=== PATIENT | female | born 1950 | race Caucasian/White ===

== ENCOUNTER 2025-07-04 14:20 | Inpatient (IN) | payer OTHER ==
[~2025-07-04] VITALS: Ht 167.6 cm; Wt 111.0 kg
[2025-07-04 15:15] LABS: PLATELET COUNT (AUTO) 305 K/uL (150-450); RED BLOOD CELL COUNT(AUTO) 4.65 MIL/uL (4.00-5.20); RED CELL DISTRIBUTION WIDTH 16.6 % (11.5-14.5); WHITE BLOOD COUNT (AUTO) 5.5 K/uL (4.5-11.0)
[2025-07-04 15:22] LABS: CALCIUM, TOTAL 8.5 mg/dL (8.8-10.5); CREATININE 0.74 mg/dL (0.60-1.30); GLOMERULAR FILTR. RATE CALC > 60 mL/min (>60); GLUCOSE,RANDOM 88 mg/dL (70-110); SODIUM SERUM 134 mmol/L (136-145); UREA NITROGEN, BLOOD 7 mg/dL (7-18)
[2025-07-04 15:25] LABS: COVID AG,FIA SOURCE NASAL SWAB
[2025-07-04] MEDS ORDERED: CARB1TAB35 PO (15:30)
[2025-07-04] MEDS ORDERED: ENTA200T18 PO (15:30)
[2025-07-04] MEDS ORDERED: LURA60TA PO (15:30)
[2025-07-04] MEDS ORDERED: ARIP30TA PO (15:30)
[2025-07-04] MEDS ORDERED: FURO40TA6 PO (15:30)
[2025-07-04] MEDS ORDERED: ATOR20TA65 PO (15:30)
[2025-07-04] MEDS ORDERED: APIX2.5T PO (15:30)
[2025-07-04] MEDS ORDERED: BUPR-112 PO (15:30)
[2025-07-04 15:45] LABS: SARS-COV2 (COVID) ANTIGEN,FIA Negative (Negative)
[2025-07-04] MEDS: POTASSIUM CHLORIDE 20 MEQ ER TABLET PO ONE (17:30)
[2025-07-04] MEDS: MAGNESIUM OXIDE 400 MG TABLET PO ONE (17:30)
[2025-07-04 17:38] LABS: APPEARANCE,URINE TURBID (CLEAR); GLUCOSE, URINE (UA) NEGATIVE (NEGATIVE); LEUKOCYTE ESTERASE ,URINE LARGE (NEGATIVE); NITRATE,URINE POSITIVE (NEGATIVE); OCCULT BLOOD,URINE MODERATE (NEGATIVE); SPECIFIC GRAVITIY, URINE 1.013 (1.003-1.030)
[2025-07-04 17:39] LABS: PH,URINE DRUG SCREEN 6.0 (5.0-8.0)
[2025-07-04 17:45] LABS: ALCOHOL, URINE DRUG SCREEN NEGATIVE (NEGATIVE); AMPHET/METH SCREEN,URINE NEGATIVE (NEGATIVE); BARBITURATE SCREEN, URINE NEGATIVE (NEGATIVE); CANNABINOID SCREEN,URINE NEGATIVE (NEGATIVE); COCAINE SCREEN,URINE NEGATIVE (NEGATIVE); METHADONE SCREEN, URINE NEGATIVE (NEGATIVE)
[2025-07-04 17:56] LABS: SQUAMOUS EPITHELIAL CELL,UR Few /LPF (None Seen)
[2025-07-04 21:59] VITALS: BP 117/74; PULSE 85; RESP 20; TEMP 98.2; O2SAT 96
[2025-07-05 04:30] VITALS: BP 119/67; PULSE 82; RESP 20; TEMP 97.9; O2SAT 96
[2025-07-05 07:49] VITALS: BP 118/71; PULSE 83; RESP 18; TEMP 97.5; O2SAT 99
[2025-07-05] MEDS: ATORVASTATIN CALCIUM 20 MG TABLET PO SCH (10:54)
[2025-07-05] MEDS: CARBIDOPA/LEVODOPA 25-100 MG TABLET PO SCH (10:54)
[2025-07-05] MEDS: BuPROPion HCL 100 MG SR TABLET PO SCH (10:54)
[2025-07-05] MEDS: APIXABAN 2.5 MG TABLET PO SCH (10:54)
[2025-07-05] MEDS: FUROSEMIDE 40 MG TABLET PO SCH (10:54)
[2025-07-05] MEDS ORDERED: SODIUM CHLORIDE 0.9% 500 ML IV ONE (13:26)
[2025-07-05] MEDS: CefTRIAXone 1 GM/DEXTROSE 50 ML IV SCH (13:33)
[2025-07-05 13:53] LABS: ASPARTATE AMINOTRANSFERASE 15 U/L (15-37); CALCIUM, TOTAL 8.4 mg/dL (8.8-10.5); CREATININE 0.70 mg/dL (0.60-1.30); GLOMERULAR FILTR. RATE CALC > 60 mL/min (>60); GLUCOSE,RANDOM 89 mg/dL (70-110); SODIUM SERUM 137 mmol/L (136-145); TOTAL PROTEIN, SERUM 6.9 g/dL (6.4-8.2); UREA NITROGEN, BLOOD 11 mg/dL (7-18)
[2025-07-05 16:03] VITALS: BP 131/71; PULSE 106; RESP 18; TEMP 97.6; O2SAT 96
[2025-07-05] MEDS: ENTACAPONE 200 MG TABLET PO SCH (17:20)
[2025-07-05 20:00] VITALS: BP 111/68; PULSE 89; RESP 18; TEMP 98.2; O2SAT 97
[2025-07-05] MEDS: LURASIDONE HCL 60 MG TABLET PO SCH (20:12)
[2025-07-05] MEDS: POTASSIUM CHLORIDE 20 MEQ ER TABLET PO PRN (22:25)
[2025-07-06 04:00] VITALS: BP 102/65; PULSE 82; RESP 18; TEMP 98.2; O2SAT 95
[2025-07-06] MEDS: POTASSIUM CHL 10 MEQ/WATER 50 ML IV SCH (10:30)
[2025-07-06 16:00] VITALS: BP 112/87; PULSE 90; RESP 20; TEMP 97.9; O2SAT 98
[2025-07-06 19:46] VITALS: BP 118/79; PULSE 87; RESP 18; TEMP 98.2; O2SAT 100
[2025-07-07 04:46] VITALS: BP 114/76; PULSE 87; RESP 18; TEMP 97.9; O2SAT 96
[2025-07-07 08:08] VITALS: BP 109/63; PULSE 89; RESP 18; TEMP 98; O2SAT 100
[2025-07-07] MEDS: MEROPENEM 1 GM in SODIUM CHLORIDE 0.9% 50 ML IV SCH (10:42)
[2025-07-07 15:00] VITALS: BP 110/7; PULSE 97; RESP 19; TEMP 98; O2SAT 97
[2025-07-07 19:42] VITALS: BP 107/74; PULSE 88; RESP 18; TEMP 97.9; O2SAT 97
[2025-07-08 04:38] VITALS: BP 107/68; PULSE 80; RESP 18; TEMP 97.7; O2SAT 96
[2025-07-08 07:41] VITALS: BP 100/63; PULSE 75; RESP 20; TEMP 97.5; O2SAT 99
[2025-07-08 13:38] VITALS: BP 98/60; PULSE 99
[2025-07-08 13:44] VITALS: BP 92/57; PULSE 97
[2025-07-08 16:59] VITALS: BP 99/69; PULSE 93; RESP 20; TEMP 97.9; O2SAT 100
[2025-07-08 19:45] VITALS: BP 105/65; PULSE 93; RESP 18; TEMP 97.9; O2SAT 95
[2025-07-08] MEDS: FUROSEMIDE 20 MG TABLET PO SCH (21:00)
[2025-07-09 04:38] VITALS: BP 108/83; PULSE 77; RESP 18; TEMP 97.3; O2SAT 95
[2025-07-09 07:33] VITALS: BP 99/72; PULSE 104; RESP 20; TEMP 97.7; O2SAT 99
[2025-07-09] MEDS ORDERED: SODIUM CHLORIDE 0.9% 500 ML IV ONE (11:40)
[2025-07-09 15:05] VITALS: BP 100/75; PULSE 108; RESP 20; TEMP 97.3; O2SAT 96
[2025-07-09 19:42] VITALS: BP 98/63; PULSE 130; RESP 20; TEMP 97.7; O2SAT 95
[2025-07-10 03:59] VITALS: BP 108/66; PULSE 120; RESP 20; TEMP 97.7; O2SAT 97
[2025-07-10 08:00] VITALS: BP 107/89; PULSE 116; RESP 19; TEMP 97.5; O2SAT 96
[2025-07-10 10:05] LABS: PLATELET COUNT (AUTO) 256 K/uL (150-450); RED BLOOD CELL COUNT(AUTO) 4.64 MIL/uL (4.00-5.20); RED CELL DISTRIBUTION WIDTH 16.7 % (11.5-14.5); WHITE BLOOD COUNT (AUTO) 6.4 K/uL (4.5-11.0)
[2025-07-10 10:08] LABS: CALCIUM, TOTAL 8.4 mg/dL (8.8-10.5); CREATININE 0.93 mg/dL (0.60-1.30); GLOMERULAR FILTR. RATE CALC 59.0 mL/min (>60); GLUCOSE,RANDOM 143.0 mg/dL (70-110); SODIUM SERUM 138.0 mmol/L (136-145); UREA NITROGEN, BLOOD 15.0 mg/dL (7-18)
[2025-07-10 10:15] LABS: TROPONIN I-HIGH SENSITIVITY 14 ng/L (<51)
[2025-07-10] MEDS: HYDROCODONE/ACETAMINOPHEN 5-325 MG TABLET PO PRN (10:23)
[2025-07-10] MEDS: POTASSIUM CHL 10 MEQ/WATER 50 ML IV PRN (10:40)
[2025-07-10] MEDS ORDERED: MAGNESIUM SULFATE 2 GM/WATER 50 ML IV PRN (10:45)
[2025-07-10] MEDS ORDERED: MAGNESIUM SULFATE 4 GM/WATER 100 ML IV PRN (10:45)
[2025-07-10] MEDS: MAGNESIUM OXIDE 400 MG TABLET PO PRN (11:10)
[2025-07-10] MEDS: AMIODARONE HCL 360 MG in DEXTROSE 5%-WATER 242.8 ML IV ONE (14:53)
[2025-07-10] MEDS: AMIODARONE HCL 150 MG in DEXTROSE 5%-WATER 97 ML IV ONE (14:54)
[2025-07-10 15:52] LABS: TROPONIN I-HIGH SENSITIVITY 13 ng/L (<51)
[2025-07-10 20:29] VITALS: BP 106/78; PULSE 112; RESP 19; TEMP 97.5; O2SAT 98
[2025-07-10] MEDS: AMIODARONE HCL 540 MG in DEXTROSE 5%-WATER 250 ML IV ONE (22:13)
[2025-07-11] VITALS (7 sets, daily range): BP systolic 97–125; BP diastolic 66–84; PULSE 72–108; RESP 18–20; TEMP 97.2–98.5; O2SAT 96–98
[2025-07-11 06:17] LABS: CALCIUM, TOTAL 8.4 mg/dL (8.8-10.5); CREATININE 0.77 mg/dL (0.60-1.30); GLOMERULAR FILTR. RATE CALC > 60 mL/min (>60); GLUCOSE,RANDOM 100 mg/dL (70-110); SODIUM SERUM 138 mmol/L (136-145); UREA NITROGEN, BLOOD 12 mg/dL (7-18)
[2025-07-11] MEDS: METOPROLOL TARTRATE 25 MG TABLET PO SCH (09:31)
[2025-07-11] MEDS: AMIODARONE HCL 750 MG in DEXTROSE 5%-WATER 485 ML IV SCH (17:18)
[2025-07-12 04:13] VITALS: BP 105/78; PULSE 94; RESP 18; TEMP 97.9; O2SAT 98
[2025-07-12 06:30] LABS: PLATELET COUNT (AUTO) 250 K/uL (150-450); RED BLOOD CELL COUNT(AUTO) 4.47 MIL/uL (4.00-5.20); RED CELL DISTRIBUTION WIDTH 16.3 % (11.5-14.5); WHITE BLOOD COUNT (AUTO) 9.5 K/uL (4.5-11.0)
[2025-07-12 07:04] LABS: CALCIUM, TOTAL 8.4 mg/dL (8.8-10.5); CREATININE 0.83 mg/dL (0.60-1.30); GLOMERULAR FILTR. RATE CALC > 60 mL/min (>60); GLUCOSE,RANDOM 108 mg/dL (70-110); SODIUM SERUM 137 mmol/L (136-145); UREA NITROGEN, BLOOD 12 mg/dL (7-18)
[2025-07-12 08:33] VITALS: BP 100/69; PULSE 113; RESP 19; TEMP 97.9; O2SAT 98
[2025-07-12 11:38] VITALS: BP 110/72; PULSE 100; RESP 18; TEMP 98.8; O2SAT 98
[2025-07-12] MEDS: AMIODARONE HCL 200 MG TABLET PO SCH (15:06)
[2025-07-12 15:53] VITALS: BP 112/69; PULSE 102; RESP 17; TEMP 98.1; O2SAT 99
[2025-07-12 19:56] VITALS: BP 119/78; PULSE 107; RESP 17; TEMP 97.7; O2SAT 99
[2025-07-12] MEDS: MIDODRINE HCL 5 MG TABLET PO SCH (21:16)
[2025-07-12 23:21] VITALS: BP 109/98; PULSE 90; RESP 15; TEMP 98.1; O2SAT 97
[2025-07-13 03:24] VITALS: BP 113/68; PULSE 88; RESP 17; TEMP 98.1; O2SAT 97
[2025-07-13 07:48] VITALS: BP 101/60; PULSE 92; RESP 18; TEMP 97.6; O2SAT 98
[2025-07-13 11:51] VITALS: BP 98/62; PULSE 90; RESP 19; TEMP 97; O2SAT 94
[2025-07-13 16:21] VITALS: BP 98/62; PULSE 85; RESP 18; TEMP 97.4; O2SAT 98
[2025-07-13 20:15] VITALS: BP 105/62; PULSE 104; RESP 18; TEMP 98.1; O2SAT 97
[2025-07-14] VITALS (7 sets, daily range): BP systolic 90–111; BP diastolic 55–76; PULSE 73–100; RESP 17–18; TEMP 97.3–98.1; O2SAT 94–98
[2025-07-14 05:57] LABS: PLATELET COUNT (AUTO) 249 K/uL (150-450); RED BLOOD CELL COUNT(AUTO) 4.36 MIL/uL (4.00-5.20); RED CELL DISTRIBUTION WIDTH 16.3 % (11.5-14.5); WHITE BLOOD COUNT (AUTO) 7.9 K/uL (4.5-11.0)
[2025-07-14 06:49] LABS: CALCIUM, TOTAL 8.7 mg/dL (8.8-10.5); CREATININE 0.86 mg/dL (0.60-1.30); GLOMERULAR FILTR. RATE CALC > 60 mL/min (>60); GLUCOSE,RANDOM 99 mg/dL (70-110); SODIUM SERUM 138 mmol/L (136-145); UREA NITROGEN, BLOOD 18 mg/dL (7-18)
[2025-07-14] MEDS: MEROPENEM 1 GM in SODIUM CHLORIDE 0.9% 50 ML IV SCH (11:54)
[2025-07-15 03:39] VITALS: BP 95/65; PULSE 80; RESP 19; TEMP 98.1; O2SAT 98
[2025-07-15 08:00] VITALS: BP 89/62; PULSE 70; RESP 18; TEMP 97.3; O2SAT 97
[2025-07-15] MEDS: MIDODRINE HCL 5 MG TABLET PO SCH (09:27)
[2025-07-15 12:00] VITALS: BP 91/44; PULSE 88; RESP 18; TEMP 97.7; O2SAT 97
[2025-07-15 16:00] VITALS: BP 88/50; PULSE 57; RESP 14; TEMP 98; O2SAT 100
[2025-07-15 20:19] VITALS: BP 120/77; PULSE 105; RESP 16; TEMP 98.1; O2SAT 97
[2025-07-15 20:30] VITALS: PULSE 82
[2025-07-16 00:13] VITALS: BP 107/78; PULSE 104; RESP 18; TEMP 98.1; O2SAT 96
[2025-07-16 03:57] VITALS: BP 106/69; PULSE 78; RESP 17; TEMP 98.1; O2SAT 95
[2025-07-16 08:48] VITALS: BP 104/71; PULSE 86; RESP 18; TEMP 98.4; O2SAT 94
[2025-07-16 10:16] LABS: PLATELET COUNT (AUTO) 244 K/uL (150-450); RED BLOOD CELL COUNT(AUTO) 4.08 MIL/uL (4.00-5.20); RED CELL DISTRIBUTION WIDTH 16.6 % (11.5-14.5); WHITE BLOOD COUNT (AUTO) 7.6 K/uL (4.5-11.0)
[2025-07-16 10:25] LABS: CALCIUM, TOTAL 8.5 mg/dL (8.8-10.5); CREATININE 0.84 mg/dL (0.60-1.30); GLOMERULAR FILTR. RATE CALC > 60 mL/min (>60); GLUCOSE,RANDOM 87 mg/dL (70-110); SODIUM SERUM 141 mmol/L (136-145); UREA NITROGEN, BLOOD 19 mg/dL (7-18)
[2025-07-16 16:39] VITALS: BP 90/55; PULSE 78; RESP 18; TEMP 97.5; O2SAT 95
[2025-07-16 20:00] VITALS: BP 88/62; PULSE 72; RESP 18; TEMP 97.5; O2SAT 96
[2025-07-17] VITALS: BP 108/65; PULSE 82; RESP 18; TEMP 98.1; O2SAT 96
[2025-07-17 03:26] VITALS: BP 112/65; PULSE 87; RESP 18; TEMP 97.9; O2SAT 98
[2025-07-17 08:27] VITALS: BP 100/72; PULSE 90; RESP 17; TEMP 98.2; O2SAT 99
[2025-07-17 08:49] LABS: PLATELET COUNT (AUTO) 262 K/uL (150-450); RED BLOOD CELL COUNT(AUTO) 4.27 MIL/uL (4.00-5.20); RED CELL DISTRIBUTION WIDTH 16.6 % (11.5-14.5); WHITE BLOOD COUNT (AUTO) 10.0 K/uL (4.5-11.0)
[2025-07-17] MEDS: METOPROLOL SUCCINATE 25 MG ER TABLET PO SCH (08:51)
[2025-07-17 09:07] LABS: CALCIUM, TOTAL 8.3 mg/dL (8.8-10.5); CREATININE 0.73 mg/dL (0.60-1.30); GLOMERULAR FILTR. RATE CALC > 60 mL/min (>60); GLUCOSE,RANDOM 98 mg/dL (70-110); SODIUM SERUM 142 mmol/L (136-145); UREA NITROGEN, BLOOD 16 mg/dL (7-18)
[2025-07-17 12:06] VITALS: BP 97/58; PULSE 88; RESP 17; TEMP 97.7; O2SAT 96
[2025-07-17] MEDS ORDERED: METO25XL PO (14:39)
[2025-07-17] MEDS ORDERED: MIDO5TAB29 PO (14:39)
[2025-07-17] MEDS ORDERED: AMIO200T8 PO (14:39)
[2025-07-17 19:47] VITALS: BP 96/60; PULSE 76; RESP 18; TEMP 97.7; O2SAT 96
[2025-07-17 23:56] VITALS: BP 102/64; PULSE 82; RESP 19; TEMP 97.9; O2SAT 95
[2025-07-18 06:35] VITALS: BP 91/70; PULSE 80; RESP 18; TEMP 98.1; O2SAT 96
[2025-07-18 06:58] LABS: CALCIUM, TOTAL 8.6 mg/dL (8.8-10.5); CREATININE 0.76 mg/dL (0.60-1.30); GLOMERULAR FILTR. RATE CALC > 60 mL/min (>60); GLUCOSE,RANDOM 91 mg/dL (70-110); SODIUM SERUM 142 mmol/L (136-145); UREA NITROGEN, BLOOD 16 mg/dL (7-18)
[2025-07-18 07:26] LABS: PLATELET COUNT (AUTO) 261 K/uL (150-450); RED BLOOD CELL COUNT(AUTO) 4.18 MIL/uL (4.00-5.20); RED CELL DISTRIBUTION WIDTH 16.7 % (11.5-14.5); WHITE BLOOD COUNT (AUTO) 9.3 K/uL (4.5-11.0)
[2025-07-18 08:16] VITALS: BP 108/84; PULSE 92; RESP 18; TEMP 97.5; O2SAT 96
[2025-07-18 15:29] VITALS: BP 107/84; PULSE 89; RESP 18; TEMP 97.7; O2SAT 96
[2025-07-18 20:46] VITALS: BP 102/89; PULSE 73; RESP 18; TEMP 97.7; O2SAT 97
[2025-07-19 00:29] VITALS: BP 106/92; PULSE 92; RESP 18; TEMP 97.5; O2SAT 98
[2025-07-19 05:40] VITALS: BP 101/71; PULSE 83; RESP 18; TEMP 98.1; O2SAT 97
[2025-07-19 07:59] VITALS: BP 118/63; PULSE 92; RESP 18; TEMP 97.7; O2SAT 92
[2025-07-19 11:43] VITALS: BP 115/68; PULSE 99; RESP 18; TEMP 97.5; O2SAT 92
[2025-07-19 19:53] VITALS: BP 99/61; PULSE 97; RESP 20; TEMP 97.5; O2SAT 95
[2025-07-20 03:50] VITALS: BP 111/59; PULSE 86; RESP 20; TEMP 98.2; O2SAT 94
[2025-07-20 08:00] VITALS: BP 115/49; PULSE 83; RESP 18; TEMP 98; O2SAT 94
[2025-07-20] MEDS: BISACODYL 10 MG RECTAL RECTAL SUPPOSITORY PR PRN (17:15)
[2025-07-20 20:07] VITALS: BP 124/81; PULSE 90; RESP 19; TEMP 97.5; O2SAT 97
[2025-07-21 04:14] VITALS: BP 115/75; PULSE 95; RESP 19; TEMP 98.2; O2SAT 93
[2025-07-21 09:08] VITALS: BP 95/67; PULSE 90; RESP 18; TEMP 98.2; O2SAT 95
[2025-07-21 15:52] VITALS: BP 96/66; PULSE 93; RESP 17; TEMP 97.3; O2SAT 91
[2025-07-21 19:34] VITALS: BP 106/64; PULSE 96; RESP 18; TEMP 97.5; O2SAT 96
[2025-07-22 05:46] VITALS: BP 115/69; PULSE 91; RESP 18; TEMP 97.9; O2SAT 93
[2025-07-22 07:26] LABS: PLATELET COUNT (AUTO) 304 K/uL (150-450); RED BLOOD CELL COUNT(AUTO) 4.20 MIL/uL (4.00-5.20); RED CELL DISTRIBUTION WIDTH 16.8 % (11.5-14.5); WHITE BLOOD COUNT (AUTO) 7.3 K/uL (4.5-11.0)
[2025-07-22 07:36] VITALS: BP 103/64; PULSE 95; RESP 18; TEMP 97.7; O2SAT 97
[2025-07-22 07:43] LABS: ASPARTATE AMINOTRANSFERASE 16 U/L (15-37); CALCIUM, TOTAL 8.6 mg/dL (8.8-10.5); CREATININE 0.87 mg/dL (0.60-1.30); GLOMERULAR FILTR. RATE CALC > 60 mL/min (>60); GLUCOSE,RANDOM 91 mg/dL (70-110); SODIUM SERUM 139 mmol/L (136-145); TOTAL PROTEIN, SERUM 6.7 g/dL (6.4-8.2); UREA NITROGEN, BLOOD 17 mg/dL (7-18)
== END 2025-07-22 12:06 | DRG 690 ==
LOC: EMS 14:23 → EDH 17:20 → 4E 21:56 → 5N 07-10 13:40 → 6S 07-19 15:36
PROVIDERS: ADMIT Family Medicine; ATTEND Family Medicine
DX: N39.0 Urinary tract infection, site not specified (principal); J81.1 Chronic pulmonary edema; F31.32 Bipolar disorder, current episode depressed, moderate; I48.92 Unspecified atrial flutter; I50.30 Unspecified diastolic (congestive) heart failure; E44.0 Moderate protein-calorie malnutrition; Z16.12 Extended spectrum beta lactamase (ESBL) resistance; E87.6 Hypokalemia; F20.9 Schizophrenia, unspecified; F41.9 Anxiety disorder, unspecified; I11.0 Hypertensive heart disease with heart failure; G20.A1 Parkinson's disease without dyskinesia, without mention of fluctuations; G47.00 Insomnia, unspecified; I48.0 Paroxysmal atrial fibrillation; F22 Delusional disorders; I27.24 Chronic thromboembolic pulmonary hypertension; J84.10 Pulmonary fibrosis, unspecified; Z68.39 Body mass index [BMI] 39.0-39.9, adult; B96.20 Unspecified Escherichia coli [E. coli] as the cause of diseases classified elsewhere; Z79.899 Other long term (current) drug therapy; Z99.81 Dependence on supplemental oxygen
CPT/HCPCS: 71045; 74019; 80048; 80053; 80307; 81001; 82040; 83735; 83880; 84132; 84443; 84484; 85025; 87077; 87081; 87086; 87186; 93005; 93306; 97110; 97162; 97167; 97535; 99285; G0378; G0480; J0282; J0696; J2185; J3480; J7040; J7050; J7060; 36415-L1; 36415-TC